=== PATIENT | male | born 1955 | race Caucasian/White ===

== ENCOUNTER 2018-10-16 15:10 | Emergency (ER) | payer MEDICAID, OTHER ==
[~2018-10-16] VITALS: Ht 165.1 cm; Wt 61.4 kg
[~2018-10-16 15:10] MED LIST: ACET-2047 PO; AMLO-218 PO; AMLO5TAB4 PO; CALC667T2 PO; CIPR500T4 PO; CLON-379 PO; DIL125/5 PO; DOXE4VIA IV; EPOE3000 SC; FURO-110 PO; HYDR-3672 PO; IRON100V IV; KEP100S PO; LEVE500T8 PO; LISI10TA2 PO; METO-448 PO; NIFE60TA18 PO; PANT40TA3 PO; PHEN125O3 PO; PRAV40TA76 PO; ROSU40TA35 PO; SEVE800T7 PO
[2018-10-16 15:12] VITALS: Ht 165.1 cm; Wt 61.4 kg
--- NOTE | 2018-10-16 15:21 | ERD ---
ER Documentation Chief Complaint Chief Complaint sent by RA. bleeding fistula Lt arm. +seizure lasting 1-2 mins. HPI The patient is a 72-year-old male, presenting to the ER because he had a generalized tonic-clonic seizure during dialysis lasting for approximately 1 to 2 minutes, he had about 20 minutes left after dialysis. Remained postictal. He also has bleeding left upper extremity AV fistula and it was clamped by the dialysis nurse to arrival. He has history of chronic encephalopathy, minimal history is obtained by the patient, the history is obtained from EMS and medical record. Medical history: Epilepsy, chronic kidney disease, history of CVA with left hemiplegia, diabetes mellitus, hypertension, dyslipidemia, history of CHF, anemia, anxiety, encephalopathy, GERD Past surgical history: Left upper extremity AV fistula ROS All systems reviewed and are negative except as per history of present illness. Medications Home Meds Reported Medications Acetaminophen* (Acetaminophen*) 650 Mg Tablet, 650 MG PO Q4H PRN for FEVER, #30 TAB 10/16/18 Iron Sucrose* (Venofer*) 100 Mg/5 Ml Vial, 50 MG IV PRN for WEEKLY, VIAL 10/16/18 Doxercalciferol (Hectorol) 4 Mcg/2 Ml Vial, 8.5 MCG IV THREE TIMES A WEEK, VIAL 10/16/18 Epoetin twin* (Epogen*) 3,000 Unit/1 Ml Vial, 3200 UNIT SC THREE TIMES A WEEK, VIAL 10/16/18 Pantoprazole* (Protonix*) 40 Mg Tablet.dr, 40 MG PO DAILY PRN for GASTROINT ESTINAL UPSET, TAB 10/16/18 Levetiracetam* (Levetiracetam*) 500 Mg Tablet, 500 MG PO DAILY, TAB 10/16/18 Pravastatin Sodium* (Pravastatin Sodium*) 40 Mg Tablet, 40 MG PO HS, TAB 10/16/18 Hydralazine Hcl* (Hydralazine Hcl*) 50 Mg Tab, 50 MG PO Q6, #120 TAB 10/16/18 Nifedipine* (Nifedipine ER*) 60 Mg Tablet.sa, 60 MG PO DAILY, TAB.SA 10/16/18 Phenytoin (Dilantin) 100 Mg/4 Ml Susp, 100 MG PO TID for 30 Days, BOTTLE 10/16/18 Metoprolol Tartrate* (Lopressor*) 25 Mg Tab, 25 MG PO BID, #60 TAB 10/16/18 Clonidine Hcl* (Clonidine Hcl*) 0.1 Mg Tab, 0.1 MG PO Q8, TAB 10/16/18 Lisinopril* (Lisinopril*) 10 Mg Tablet, 10 MG PO DAILY, #30 TAB 10/16/18 Amlodipine Besylate* (Norvasc*) 10 Mg Tablet, 10 MG PO DAILY, TAB 10/16/18 Discontinued Reported Medications Amlodipine Besylate* (Norvasc*) 5 Mg Tablet, 5 MG PO DAILY, TAB 12/08/15 Phenytoin* (Phenytoin*) 125 Mg/5 Ml Oral.susp, 200 MG PO BID for 30 Days, BOTTLE 12/08/15 Levetiracetam* (Keppra* (Ped)) 100 Mg/Ml Liq, 500 MG PO BID for 30 Days, BOTTLE 12/08/15 Rosuvastatin Calcium* (Crestor*) 40 Mg Tablet, 40 MG PO QHS, #30 TAB 11/20/15 Sevelamer Carbonate* (Renvela*) 800 Mg Tablet, 0.8 GM PO WITH MEALS, TAB 11/17/15 Calcium Acetate* (Phoslo*) 667 Mg Tablet, 667 MG PO WITH MEALS, TAB 11/17/15 Discontinued Scripts Ciprofloxacin Hcl* (Ciprofloxacin Hcl*) 500 Mg Tablet, 500 MG PO BID for 7 Days, TAB Prov:JADON GUTIERREZ 01/05/16 Furosemide* (Lasix*) 20 Mg Tablet, 20 MG PO BID, #60 TAB Prov:BREANA MAXWELL MD 12/10/15 Hydralazine Hcl* (Hydralazine Hcl*) 50 Mg Tab, 50 MG PO Q6 for 30 Days, TAB Prov:GURDEEP FARNSWORTH 11/25/15 Allergies Allergies: Coded Allergies: No Known Drug Allergies (Verified Allergy, Mild, 01/05/16) PMhx/Soc History of Surgery: Yes (AV fistula,dialysis) Anesthesia Reaction: No Hx Neurological Disorder: Yes (seizures, previous 3 strokes, recent stroke november 2015) Hx Respiratory Disorders: No Hx Cardiac Disorders: Yes (HTN) Hx Psychiatric Problems: No Hx Miscellaneous Medical Probl: Yes (ESRD,seizure,dyslipidemia,multiple CVA,subarachnoid hem) Hx Alcohol Use: No Hx Substance Use: No Hx Tobacco Use: Yes Physical Exam Vitals Vital Signs Date Temp Pulse Resp B/P (MAP) Pulse Ox O2 O2 Flow FiO2 Time Delivery Rate 10/16/18 85 18 167/75 98 Room Air 18:32 (105) 10/16/18 87 20 157/76 96 Room Air 16:19 (103) 10/16/18 98.2 99 18 155/69 100 15:12 (97) Physical Exam Const: No acute distress. Head: Atraumatic. Eyes: Normal Conjunctiva. ENT: Normal External Ears, Nose and Mouth. Neck: Full range of motion. No meningismus. Resp: Clear to auscultation bilaterally. Cardio: Regular rate and rhythm. Abd: Soft, non distended, normal bowel sounds, non tender. Skin: No petechiae or rashes. Back: No midline or flank tenderness. Ext: No cyanosis, or edema. Mild bleeding at the left upper extremity AV fistula Neur: Awake. Left upper and left lower extremity 4+ Psych: Normal Mood and Affect. Result Diagram: 10/16/18 1621 10/16/18 1621 Results 24 hrs Laboratory Tests Test 10/16/18 16:21 White Blood Count 7.5 10^3/ul Red Blood Count 3.31 10^6/ul Hemoglobin 10.8 g/dl Hematocrit 31.6 % Mean Corpuscular Volume 95.5 fl Mean Corpuscular Hemoglobin 32.6 pg Mean Corpuscular Hemoglobin Concent 34.2 g/dl Red Cell Distribution Width 12.5 % Platelet Count 194 10^3/UL Mean Platelet Volume 10.3 fl Immature Granulocytes % 0.500 % Neutrophils % 80.4 % Lymphocytes % 5.9 % Monocytes % 12.6 % Eosinophils % 0.3 % Basophils % 0.3 % Nucleated Red Blood Cells % 0.0 /100WBC Immature Granulocytes # 0.040 10^3/ul Neutrophils # 6.0 10^3/ul Lymphocytes # 0.4 10^3/ul Monocytes # 0.9 10^3/ul Eosinophils # 0.0 10^3/ul Basophils # 0.0 10^3/ul Nucleated Red Blood Cells # 0.0 10^3/ul Prothrombin Time 12.4 Sec Prothrombin Time Ratio 1.0 INR International Normalized Ratio 0.91 Activated Partial Thromboplast Time 27.9 Sec Sodium Level 139 mmol/L Potassium Level 3.4 mmol/L Chloride Level 93 mmol/L Carbon Dioxide Level 32 mmol/L Anion Gap 14 Blood Urea Nitrogen 52 mg/dl Creatinine 5.81 mg/dl Est Glomerular Filtrat Rate mL/min 10 mL/min Glucose Level 134 mg/dl Calcium Level 9.6 mg/dl Troponin I 0.036 ng/ml Phenytoin (Dilantin) Level 4.9 ug/ml Current Medications Medications Dose Sig/Lamar Start Time Status Last (Trade) Ordered Route PRN Stop Time Admin Dose Reason Admin 100 ml @ ONCE ONCE 10/16/18 DC 10/16/18 Levetiracetam 400 mls/hr IVPB 15:30 10/16/18 15:58 15:44 100 ml @ ONCE ONCE 10/16/18 DC 10/16/18 Fosphenytoin 200 mls/hr IVPB 18:00 10/16/18 18:02 Sodium 500 18:29 mg/ Sodium Chloride Procedures/[place] [address] Radiology Main Line: [phone] DIAGNOSTIC IMAGING REPORT Patient: BRITANY SO : 1955 Age: 62 Sex: M MR #: [id number] DOS: 10/16/18 1522 Ordering MD: XAVIER CANTOR MD Location: E/R Room/Bed: PROCEDURE: XR Chest. CLINICAL INDICATION: Shortness of breath TECHNIQUE: A single AP view of the chest was obtained. COMPARISON: CR CHEST 12/08/2015; CR CHEST 11/20/2015; CR CHEST 11/17/2015; CR CHEST 10/27/2014 FINDINGS: Lung volumes are low with compressive changes and crowding of the central pulmonary vascular markings. No focal airspace opacity, pleural effusion or pneumothorax is seen. The cardiomediastinal silhouette is within normal limits for size. Calcifications are seen within the aortic arch. The osseous structures are unremarkable. IMPRESSION: 1. Low lung volumes with compressive changes. No significant interval change. 2. Aortic atherosclerosis. RPTAT: HH .Dina Swain MD, MD Date Time Electronically viewed and signed by .Dina Swain MD, MD on 10/16/2018 15:56 .G/ CC: XAVIER CANTOR MD [phone] EKG: Read by emergency physician Rate/Rhythm: Normal Sinus Rhythm 89 beats/min QRS, ST, T-waves: No ST elevation, no T inversion, septal Q's Impression: Abnormal EKG MEDICAL MAKING DECISION: The patient is 62-year-old male, presenting with a recurrent seizure due to subtherapeutic Dilantin level He was treated with Keppra 500 milligram IV and Dilantin 500 mg IV for recurrent seizure due to subtherapeutic level He is back to his baseline according to his , is stable for present follow- up The differential diagnoses considered include but are not limited to medical noncompliance, electrolyte imbalance, metabolic encephalopathy, UTI, PNA Consultation: The bleeding AV fistula was repaired by the vascular surgeon Departure Diagnosis: Primary Impression: Problem with dialysis access Additional Impressions: Recurrent seizures Anemia Hypokalemia Condition: Good Comments I discussed the findings with the patient. I advised the patient to follow-up with the primary physician in about 1-2 days, sooner if needed and return if any concern. Disclaimer: Inadvertent spelling and grammatical errors are likely due to EHR/dictation software use and do not reflect on the overall quality of patient care. Also, please note that the electronic time recorded on this note does not necessarily reflect the actual time of the patient encounter. XAVIER CANTOR MD Oct 16, 2018 15:21
[2018-10-16] MEDS ORDERED: LEVETIRACETAM 500 MG (PMX) 100 ML IVPB ONE (15:30)
--- NOTE | 2018-10-16 17:48 | CONS ---
DATE OF ADMISSION: 10/16/2018 DATE OF CONSULTATION: 10/16/2018 HISTORY OF PRESENT ILLNESS: This is a 62-year-old male with a history of end-stage renal disease, cu rrently on dialysis per left arm AV fistula. The patient was found to have bleeding from the left ar m AV fistula and was admitted. Pressure dressing was applied. I was asked to evaluate this fistula for possible repair. PAST MEDICAL HISTORY: Hypertension, hyperlipidemia, end-stage renal disease, diabetes, peripheral va scular disease. PAST SURGICAL HISTORY: Left arm AV fistula. ALLERGIES: NONE. SOCIAL HISTORY: No smoking, drinking or drug use. MEDICATION LIST: Reviewed. PHYSICAL EXAMINATION: VITAL SIGNS: Blood pressure is 110/60, pulse is 80, respirations 18. HEENT: Normocephalic, atraumatic, PERRLA. NECK: Supple. No JVD, no carotid bruits. CARDIOVASCULAR: Normal S1, S2. No murmurs, gallops or rubs. LUNGS: Clear. ABDOMEN: Soft. EXTREMITIES: Warm. Left arm AV fistula is in place. There is a thrill and a bruit. Pressure dress ing has been applied. IMPRESSION: Left arm AV fistula bleeding. RECOMMENDATIONS: We will proceed with repair of the bleeding AV fistula. Risks, benefits, complicat ions, alternative therapies were explained to the patient. All questions were answered. Dictated By: PALAK MOLINA MD FM/NTS Conf#: [id number] DID#: [id number] CC: XAVIER CANTOR MD;*EndCC*
--- NOTE | 2018-10-16 17:51 | OPR ---
DATE OF OPERATION: 10/16/2018 PREOPERATIVE DIAGNOSIS: Bleeding left arm AV fistula. POSTOPERATIVE DIAGNOSIS: Bleeding left arm AV fistula. PROCEDURE: Repair of bleeding left arm AV fistula/brachial artery. SURGEON: Palak Lozada MD ANESTHESIA: Local. CONSENT: Risks, benefits, complications, alternative therapies were explained to the patient and trino tovar. Consent was obtained. conveyor mechanic was used in the patient who was admitted because of t he bleeding left arm AV fistula. Subsequently, pressure dressing had been applied and the bleeding w as under controlled. OPERATIVE TECHNIQUE: The patient was placed in supine position, prepped and draped in usual sterile fashion. Time-out was called. Pressure dressing was removed very gently. Bleeding from the left ar m fistula was noted and appeared to be gushing out. Compression with finger was applied to control t he bleeding. Subsequently, I repaired the bleeding with 5-0 Prolene [id number] x2. The bleedin g stopped. Appropriate dressings were applied. I will follow this patient in my office for further management and possible revision of the fistula. I discussed with the patient. All questions were a nswered. Dictated By: PALAK LOZADA MD FM/NTS Conf#: [id number] DID#: [id number] CC: XAVIER CANTOR MD;*EndCC*
[2018-10-16] MEDS ORDERED: SOD CHLORIDE 0.9% IVPB ONE (18:00)
[2018-10-16] MEDS ORDERED: FOSPHENYTOIN IVPB ONE (18:00)
[2018-10-16 18:32] VITALS: BP 167/75; PULSE 85; RESP 18
== END 2018-10-16 18:54 | disposition home or self-care (01) ==
LOC: E/R 15:10
DX: T82.49XA Other complication of vascular dialysis catheter, initial encounter (principal); G40.909 Epilepsy, unspecified, not intractable, without status epilepticus; D64.9 Anemia, unspecified; E87.6 Hypokalemia; I12.0 Hypertensive chronic kidney disease with stage 5 chronic kidney disease or end stage renal disease; N18.6 End stage renal disease; E11.22 Type 2 diabetes mellitus with diabetic chronic kidney disease; I11.0 Hypertensive heart disease with heart failure; I50.9 Heart failure, unspecified; Y82.9 Unspecified medical devices associated with adverse incidents; Z99.2 Dependence on renal dialysis; Z86.73 Personal history of transient ischemic attack (TIA), and cerebral infarction without residual deficits
CPT/HCPCS: 71045; 80048; 80185; 84484; 85025; 85610; 85730; 86850; 86900; 86901; 93005; 96374; 96375; 99285; J1953; Q2009